=== PATIENT | male | born 1935 | race Caucasian/White ===

== ENCOUNTER → 2016-11-22 | Outpatient (CLI) | payer MEDICARE, OTHER ==
[~2016-11-22] MED LIST: ACET500T76 PO; BIMA2.5D EACHEYE; BUDE10.2 INH; CARB15DR61 EACHEYE; CYCL1DRO EACHEYE; DUTA0.5C PO; ERGO500017 PO; FENO145T32 PO; FLUO20TA25 PO; GLUC1CAP40 PO; LATA2.5D3 EACHEYE; MULT-108 PO; OLOP2.5D EACHEYE; TAMS-11 PO; TRIA1TAB3 PO
== END | disposition home or self-care (01) ==
LOC: CFH 14:05
PROVIDERS: ATTEND Internal Medicine Cardiovascular Disease
DX: K46.9 Unspecified abdominal hernia without obstruction or gangrene (principal); Z98.890 Other specified postprocedural states

== ENCOUNTER → 2016-12-06 | Outpatient (CLI) | payer MEDICARE, OTHER | END | disposition home or self-care (01) | LOC: CFH 12:19 | PROVIDERS: ATTEND Internal Medicine Cardiovascular Disease | DX: M25.552 Pain in left hip (principal) ==

== ENCOUNTER → 2017-11-06 | Outpatient (CLI) | payer MEDICARE, OTHER ==
[~2017-11-06] MED LIST changes: +ACET500T71 PO; -ACET500T76 PO
== END ==
LOC: CFH 15:28
PROVIDERS: ATTEND Internal Medicine
DX: J44.0 Chronic obstructive pulmonary disease with (acute) lower respiratory infection (principal); K43.9 Ventral hernia without obstruction or gangrene; E55.9 Vitamin D deficiency, unspecified; E78.5 Hyperlipidemia, unspecified; E87.6 Hypokalemia; D50.9 Iron deficiency anemia, unspecified; F41.9 Anxiety disorder, unspecified; C18.9 Malignant neoplasm of colon, unspecified; I12.9 Hypertensive chronic kidney disease with stage 1 through stage 4 chronic kidney disease, or unspecified chronic kidney disease; N18.3 Chronic kidney disease, stage 3 (moderate); R73.01 Impaired fasting glucose; R01.1 Cardiac murmur, unspecified; R42 Dizziness and giddiness; G47.00 Insomnia, unspecified; M25.552 Pain in left hip
CPT/HCPCS: 71250

== ENCOUNTER → 2018-02-12 | Outpatient (CLI) | payer MEDICARE, OTHER ==
[~2018-02-12] MED LIST changes: +REGADENOSON 0.4 MG/5 ML SYRINGE ONE
== END | disposition home or self-care (01) ==
LOC: RAD 12:38
PROVIDERS: ATTEND Internal Medicine Cardiovascular Disease
DX: I10 Essential (primary) hypertension (principal)
CPT/HCPCS: 78452; 93017; A9502; J2785

== ENCOUNTER → 2018-11-06 | Outpatient (CLI) | payer MEDICARE, OTHER ==
[~2018-11-06] MED LIST changes: -REGADENOSON 0.4 MG/5 ML SYRINGE ONE
== END | disposition home or self-care (01) ==
LOC: CFH 15:34
PROVIDERS: ATTEND Internal Medicine
DX: J43.2 Centrilobular emphysema (principal); Z87.891 Personal history of nicotine dependence
CPT/HCPCS: 71250